=== PATIENT | female | born 1965 | race American Indian/Alaskan Native ===

== ENCOUNTER 2016-12-05 08:02 | Outpatient (CLI) | payer MEDICAID ==
--- NOTE | 2016-12-05 11:50 | Fluoroscopy Report ---
MODIFIED BARIUM SWALLOW INDICATION: Dysphagia. COMPARISON: None similar. FINDINGS: Fluoroscopy provided by radiologist for speech therapist to assess the swallowing mechanism. Food items of various consistencies given. No aspiration or penetration noted. Few radiopaque dental material. IMPRESSION: Successful modified barium swallow. Please refer to detailed report from speech pathologist. Thank you for the opportunity to participate in this patient's care.
== END 2016-12-05 08:03 | disposition home or self-care (01) ==
LOC: PT 08:02
PROVIDERS: ATTEND Otolaryngology
DX: R13.10 Dysphagia, unspecified (principal)
CPT/HCPCS: 74230

== ENCOUNTER → 2021-05-05 | Outpatient (CLI) | payer MEDICAID | END | disposition home or self-care (01) | LOC: SLR 11:00 | PROVIDERS: ATTEND Internal Medicine Critical Care Medicine | DX: G47.33 Obstructive sleep apnea (adult) (pediatric) (principal); R40.0 Somnolence; E66.9 Obesity, unspecified | CPT/HCPCS: G0399 ==

== ENCOUNTER 2022-03-19 20:26 | Emergency (ER) | payer MEDICAID ==
[2022-03-19] MEDS ORDERED: MORPHINE 4 MG/1 ML INJ IM ONE (23:43)
[2022-03-20] MEDS ORDERED: ASPIRIN 325 MG TAB PO ONE (00:02)
[2022-03-20] MEDS ORDERED: dexAMETHasone 20 MG/5 ML VIAL IV ONE (00:02)
[2022-03-20 00:35] LABS: Basophils # (Auto) 0.1 K/mm3 (0.0-0.1); Basophils % (Auto) 0.6 % (0.0-1.8); Eosinophils # (Auto) 0.2 K/mm3 (0.0-0.4); Eosinophils % (Auto) 2.5 % (0.0-4.3); Hematocrit 33.6 % (30.3-42.9); Hemoglobin 10.5 gm/dl (10.1-14.3); Lymphocytes # (Auto) 1.2 K/mm3 (1.2-5.4); Lymphocytes % (Auto) 12.7 % (13.4-35.0); Mean Corpuscular HGB Conc 31 % (30-34); Mean Corpuscular Volume 72 fl (79-97); Monocytes # (Auto) 0.4 K/mm3 (0.0-0.8); Monocytes % (Auto) 3.9 % (0.0-7.3); Platelet Count 261 K/mm3 (140-440); Red Blood Count 4.68 M/mm3 (3.65-5.03); Red Cell Distribution Width 18.1 % (13.2-15.2)
--- NOTE | 2022-03-20 00:36 | XRay Report ---
CHEST 1 VIEW 03/20/2022 12:28 AM INDICATION / CLINICAL INFORMATION: chest pain . COMPARISON: One view of the chest from 10/01/2016. FINDINGS: SUPPORT DEVICES: None. HEART / MEDIASTINUM: No significant abnormality. LUNGS / PLEURA: No significant pulmonary abnormality. No significant pleural effusion. No pneumothora x. ADDITIONAL FINDINGS: No significant additional findings. IMPRESSION: 1. No acute abnormality of the chest. Signer Name: Brien Johnston MD Signed: 03/20/2022 12:32 AM Workstation Name: [id number]
[2022-03-20 00:56] LABS: Alanine Aminotransferase 11 units/L (7-56); Albumin 4.2 g/dL (3.9-5); Blood Urea Nitrogen 10 mg/dL (7-17); Calcium 9.3 mg/dL (8.4-10.2); Hemolysis Index 0
[2022-03-20 01:00] LABS: BUN/Creatinine Ratio 14
--- NOTE | 2022-03-20 02:22 | Vascular Lab Report ---
DUPLEX DOPPLER LOWER EXTREMITY VEINS, BILATERAL INDICATION / CLINICAL INFORMATION: BILATERAL LE PAIN. TECHNIQUE: Duplex doppler imaging was performed through the veins of both lower extremities using philip ous compression and other maneuvers. COMPARISON: None available. FINDINGS: The study is limited by the patient's body habitus. RIGHT COMMON FEMORAL VEIN: Negative. RIGHT FEMORAL VEIN: Negative. RIGHT POPLITEAL VEIN: Negative. RIGHT CALF VEINS: Negative. LEFT COMMON FEMORAL VEIN: Negative. LEFT FEMORAL VEIN: There is nonspecific lack of compressibility along the mid and distal portions of the left femoral vein. Color flow is noted along those portions of the vein. The proximal femoral vei n is negative for DVT. LEFT POPLITEAL VEIN: Negative. LEFT CALF VEINS: Negative. ADDITIONAL FINDINGS: None. IMPRESSION: 1. Nonspecific lack of compressibility in the left femoral vein as above could indicate DVT. 2. No other sonographic evidence of DVT in either lower extremity. Signer Name: Brien Johnston MD Signed: 03/20/2022 2:18 AM Workstation Name: [id number]
--- NOTE | 2022-03-20 03:14 | Emergency Department Report ---
<EDIN MEYER - Last Filed: 03/20/22 06:36> ED Neck Pain/Injury HPI - General Chief Complaint: Neck Pain/Injury Stated Complaint: PAIN IN CHEST AND NECK Mode of arrival: Ambulatory Limitations: No Limitations - History of Present Illness Initial Comments: Patient is a 56-year-old -[place] female with a history of hypertension, [id number] diabetes, chronic osteoarthritis, chronic cervical disc disease, chronic lumbar disc disease, GERD and asthma who presents to the ED with complaint of acute exacerbation of chronic neck pain and low back pain for the last 1 week. Patient also complains of intermittent chest pain that radiates to the bilateral shoulders. Patient also complains of bilateral lower extremity pain with mild swelling. Patient states that she used to attend a pain clinic until November when her pain management physician and since then she has not been able to follow-up with any physician or any pain clinic. Patient states that she ran out of her pain medication that she had previously been prescribed which was Percocet 10 mg-325 and Roxicodone 30 mg tablets. Patient states that the pain is persistent and and that she is unable to sleep because of worsening pain. Patient denies dizziness, syncope, shortness of breath, traumatic injury, heavy lifting, diaphoresis, abdominal pain, nausea and vomiting or dizziness and syncope, numbness and tingling or weakness of upper or lower extremities bilaterally. MD Complaint: neck pain, upper back pain, other (chest pain) -: Sudden, week(s) (1) Place: home Radiation: right shoulder, upper back, chest (Chest pain) Severity: severe, constant Severity scale (0 -10): 8 Quality: sharp, aching Consistency: constant Improves With: none Worsens With: movement of neck Context: turning/bending Associated Symptoms: tingling, other (Bilateral lower extremity pain and swelling). denies: numbness, weakness, vertigo, difficulty walking, swollen glands, difficulty swallowing, nausea, vomiting Treatments Prior to Arrival: none - Related Data Previous Rx's Medication Instructions Recorded Last Taken Type Azithromycin [Zithromax Z-GAYLA] 250 mg PO DAILY #6 tab 06/08/16 Unknown Rx Fluticasone [Flonase] 1 spray NS QDAY #1 bottle 06/08/16 Unknown Rx Mag Hydrox/Aluminum Hyd/Simeth 10 ml PO Q6HR PRN #355 ml 10/01/16 Unknown Rx [Maalox Advanced Suspension] Dicyclomine [Bentyl] 10 mg PO QID PRN #20 capsule 10/07/16 Unknown Rx Ketorolac [Toradol] 10 mg PO Q6H PRN #20 tablet 10/07/16 Unknown Rx Ondansetron [Zofran Odt] 4 mg PO QID PRN #20 tab.rapdis 10/07/16 Unknown Rx Apixaban [Eliquis starter pack] 5 mg PO BID 30 Days #74 tab 03/20/22 Unknown Rx Allergies Allergy/AdvReac Type Severity Reaction Status Date / Time sulfamethoxazole Allergy Hives Verified 06/07/16 22:38 [From Bactrim] tramadol Allergy Itching Verified 01/13/14 19:44 trimethoprim [From Bactrim] Allergy Hives Verified 06/07/16 22:38 ED Review of Systems Constitutional: denies: chills, fever Eyes: denies: eye pain, eye discharge, vision change ENT: denies: ear pain, throat pain Respiratory: denies: cough, shortness of breath, wheezing Cardiovascular: chest pain (Intermittent chest pain). denies: palpitations Endocrine: no symptoms reported Gastrointestinal: denies: abdominal pain, nausea, vomiting, diarrhea Genitourinary: denies: urgency, dysuria, discharge Musculoskeletal: back pain (Upper back pain), arthralgia (Neck pain and bilateral shoulder pain), other (Bilateral lower extremities pain and swelling). denies: joint swelling Skin: denies: rash, lesions Neurological: denies: headache, weakness, paresthesias Psychiatric: denies: anxiety, depression Hematological/Lymphatic: denies: easy bleeding, easy bruising ED Past Medical Hx - Past Medical History Previous Medical History?: Yes Hx Hypertension: Yes Hx Diabetes: Yes Hx GERD: Yes Hx Arthritis: Yes Hx Asthma: Yes Additional medical history: pinched nerve in neck, DDD. bronchitis. herniated disc. Morbid Obesity. Sees filler block inserter remover for fast heart beat. - Surgical History Past Surgical History?: Yes Additional Surgical History: 2 , carpal tunnel surg to left hand - Social History Smoking Status: Never Smoker Substance Use Type: None - Medications Home Medications: Home Medications Medication Instructions Recorded Confirmed Last Taken Type Azithromycin [Zithromax Z-GAYLA] 250 mg PO DAILY #6 tab 06/08/16 Unknown Rx Fluticasone [Flonase] 1 spray NS QDAY #1 bottle 06/08/16 Unknown Rx Mag Hydrox/Aluminum Hyd/Simeth 10 ml PO Q6HR PRN #355 ml 10/01/16 Unknown Rx [Maalox Advanced Suspension] Dicyclomine [Bentyl] 10 mg PO QID PRN #20 capsule 10/07/16 Unknown Rx Ketorolac [Toradol] 10 mg PO Q6H PRN #20 tablet 10/07/16 Unknown Rx Ondansetron [Zofran Odt] 4 mg PO QID PRN #20 tab.rapdis 10/07/16 Unknown Rx Apixaban [Eliquis starter pack] 5 mg PO BID 30 Days #74 tab 03/20/22 Unknown Rx ED Physical Exam - General Limitations: No Limitations General appearance: alert, in no apparent distress - Head Head exam: Present: atraumatic, normocephalic, normal inspection - Eye Eye exam: Present: normal appearance, PERRL, EOMI Pupils: Present: normal accommodation - ENT ENT exam: Present: normal exam, normal orophraynx, mucous membranes moist, TM's normal bilaterally, normal external ear exam - Neck Neck exam: Present: normal inspection, tenderness (Palpable cervical paraspinal musculoskeletal tenderness with limited range of motion due to pain), full ROM (Limited range of motion due to pain). Absent: lymphadenopathy - Respiratory Respiratory exam: Present: normal lung sounds bilaterally. Absent: respiratory distress, wheezes, rales, rhonchi, chest wall tenderness, accessory muscle use, decreased breath sounds, prolonged expiratory - Cardiovascular Cardiovascular Exam: Present: regular rate, normal rhythm, normal heart sounds. Absent: systolic murmur, diastolic murmur, rubs, gallop - GI/Abdominal GI/Abdominal exam: Present: soft, normal bowel sounds. Absent: tenderness, guarding, rebound, hyperactive bowel sounds, hypoactive bowel sounds, mass, bruit - Extremities Exam Extremities exam: Present: normal inspection, full ROM, tenderness (Palpable bilateral lower extremity tenderness with mild swelling), normal capillary refill - Back Exam Back exam: Present: normal inspection, full ROM, tenderness (Palpable lumbosacral paraspinal musculoskeletal tenderness), muscle spasm, paraspinal tenderness. Absent: CVA tenderness (R), vertebral tenderness - Neurological Exam Neurological exam: Present: alert, oriented X3, CN II-XII intact, normal gait, reflexes normal - Psychiatric Psychiatric exam: Present: normal affect, normal mood - Skin Skin exam: Present: warm, dry, intact, normal color. Absent: rash ED Medical Decision Making - Lab Data Result diagrams: 03/20/22 00:08 03/20/22 00:08 - Radiology Data Radiology results: report reviewed, image reviewed [facility] [address] [place] [address] Vascular Lab Report Signed Patient: CLARISA POZO MR#: [id number] : 1965 Acct:[id number] Age/Sex: 56 / F ADM Date: 03/19/22 Loc: ED Attending Dr: Ordering Physician: BEN BECKMAN Date of Service: 03/19/22 Procedure(s): VL venous duplex LE BILAT Accession Number(s): [id number] cc: BEN BECKMAN DUPLEX DOPPLER LOWER EXTREMITY VEINS, BILATERAL INDICATION / CLINICAL INFORMATION: BILATERAL LE PAIN. TECHNIQUE: Duplex doppler imaging was performed through the veins of both lower extremities using venous compression and other maneuvers. COMPARISON: None available. FINDINGS: The study is limited by the patient's body habitus. RIGHT COMMON FEMORAL VEIN: Negative. RIGHT FEMORAL VEIN: Negative. RIGHT POPLITEAL VEIN: Negative. RIGHT CALF VEINS: Negative. LEFT COMMON FEMORAL VEIN: Negative. LEFT FEMORAL VEIN: There is nonspecific lack of compressibility along the mid and distal portions of the left femoral vein. Color flow is noted along those portions of the vein. The proximal femoral vein is negative for DVT. LEFT POPLITEAL VEIN: Negative. LEFT CALF VEINS: Negative. ADDITIONAL FINDINGS: None. IMPRESSION: 1. Nonspecific lack of compressibility in the left femoral vein as above could indicate DVT. 2. No other sonographic evidence of DVT in either lower extremity. Signer Name: Brien Johnston MD Signed: 03/20/2022 2:18 AM Workstation Name: [id number] Transcribed By: BIBI Dictated By: Brien Johnston MD Electronically Authenticated By: Brien Johnston MD Signed Date/Time: 03/20/22217 DD/ 3 TD/TT: ------ [facility] [address] [place] [address] XRay Report Signed Patient: CLARISA POZO MR#: [id number] : 1965 Acct:[id number] Age/Sex: 56 / F ADM Date: 03/19/22 Loc: ED Attending Dr: Ordering Physician: BEN BECKMAN Date of Service: 03/19/22 Procedure(s): XR chest 1V ap Accession Number(s): [id number] cc: BEN BECKMAN Fluoro Time In Minutes: CHEST 1 VIEW 03/20/2022 12:28 AM INDICATION / CLINICAL INFORMATION: chest pain . COMPARISON: One view of the chest from 10/01/2016. FINDINGS: SUPPORT DEVICES: None. HEART / MEDIASTINUM: No significant abnormality. LUNGS / PLEURA: No significant pulmonary abnormality. No significant pleural effusion. No pneumothorax. ADDITIONAL FINDINGS: No significant additional findings. IMPRESSION: 1. No acute abnormality of the chest. Signer Name: Brien Johnston MD Signed: 03/20/2022 12:32 AM Workstation Name: [id number] Transcribed By: BIBI Dictated By: Brien Johnston MD Electronically Authenticated By: Brien Johnston MD Signed Date/Time: 03/20/2231 DD/ TD/TT: - Medical Decision Making This is a 56-year-old -[place] female with a history of hypertension, vdv-nclbszt-ndaeoqodt diabetes, chronic osteoarthritis, chronic cervical disc disease, chronic lumbar disc disease, GERD and asthma who presents to the ED with complaint of acute exacerbation of chronic neck pain and low back pain for the last 1 week. Patient also complains of intermittent chest pain that radiates to the bilateral shoulders. Patient states that she used to attend a pain clinic until November when her pain management physician and since then she has not been able to follow-up with any physician or any pain clinic. Patient states that she ran out of her pain medication that she had previously been prescribed which was Percocet 10 mg-325 and Roxicodone 30 mg tablets. Patient states that the pain is persistent and and that she is unable to sleep because of worsening pain. In the ED, patient is alert and oriented x3 and is not in any distress. Chest x-ray showed no acute cardiopulmonary abnormalities or pneumonitis. Patient was treated for pain in the ED and lab test results were reviewed and are all nonactionable including initial and 3-hour troponin levels. Bilateral lower extremity Doppler ultrasound showed a nonspecific lack of compressibility in the left femoral vein as above could indicate DVT. Rest of the Doppler ultrasound showed no other evidence of DVT. Patient was treated in the ED with Lovenox 120 mg subcutaneous injection x1. CTA chest is pending. Patient's pain is well controlled at this time. Patient care was transferred to Pillo Martin Corby PAC-at shift change at 0700 hrs. She shall review the imaging report and disposition the patient accordingly. - Differential Diagnosis PE; chronic neck pain; pneumonia; DVT; ACS; dissection; muscle strain ED Disposition Clinical Impression: Nonspecific chest pain, Cervical neck pain with evidence of disc disease, Cervical radiculopathy due to degenerative joint disease of spine Deep vein thrombosis of left lower extremity Qualifiers: Affected thrombotic vein of extremity: femoral Chronicity: acute Qualified Code(s): I82.412 - Acute embolism and thrombosis of left femoral vein Disposition: HOME / SELF CARE / HOMELESS Is pt being admited?: No Does the pt Need Aspirin: No Condition: Stable Instructions: Nonspecific Chest Pain, Adult Additional Instructions: Chest CT angio is negative for any pulmonary embolisms. Prescriptions: Apixaban [Eliquis starter pack] 5 mg PO BID 30 Days #74 tab Referrals: PB FONSECA MD [Primary Care Provider] - 3-5 Days Time of Disposition: 03:35 Print Language: AMHARIC <SAL SOSA - Last Filed: 03/20/22 12:30> ED Review of Systems ROS: Stated complaint: PAIN IN CHEST AND NECK Other details as noted in HPI ED Physical Exam - General General appearance: alert, in no apparent distress - Head Head exam: Present: atraumatic, normocephalic, normal inspection - Eye Eye exam: Present: normal appearance, PERRL, EOMI Pupils: Present: normal accommodation - ENT ENT exam: Present: normal exam, normal orophraynx, mucous membranes moist, normal external ear exam - Neck Neck exam: Present: tenderness, full ROM - Cardiovascular Cardiovascular Exam: Present: regular rate - GI/Abdominal GI/Abdominal exam: Present: soft - Extremities Exam Extremities exam: Present: pedal edema ED Course Vital Signs 03/19/22 03/19/22 03/19/22 20:46 22:56 23:00 Temperature 98.5 F Pulse Rate 99 H Respiratory 18 Rate Blood Pressure 215/92 179/80 O2 Sat by Pulse 98 98 99 Oximetry 03/19/22 03/19/22 03/19/22 23:16 23:30 23:46 Temperature Pulse Rate Respiratory Rate Blood Pressure 179/80 152/69 152/69 O2 Sat by Pulse 98 98 98 Oximetry 03/20/22 03/20/22 03/20/22 00:00 00:16 00:32 Temperature Pulse Rate Respiratory Rate Blood Pressure 176/71 176/71 176/71 O2 Sat by Pulse 100 100 100 Oximetry 03/20/22 03/20/22 03/20/22 02:30 02:46 03:00 Temperature Pulse Rate Respiratory Rate Blood Pressure 176/71 176/71 176/71 O2 Sat by Pulse 99 97 97 Oximetry 03/20/22 03/20/22 03/20/22 03:16 03:30 03:46 Temperature Pulse Rate Respiratory Rate Blood Pressure 176/71 176/71 155/83 O2 Sat by Pulse 97 97 97 Oximetry 03/20/22 03/20/22 03/20/22 04:00 04:16 04:30 Temperature Pulse Rate Respiratory Rate Blood Pressure 156/67 156/67 176/71 O2 Sat by Pulse 96 97 96 Oximetry 03/20/22 03/20/22 03/20/22 04:46 06:28 06:30 Temperature Pulse Rate Respiratory Rate Blood Pressure 176/71 149/69 O2 Sat by Pulse 98 98 94 Oximetry 03/20/22 06:45 Temperature Pulse Rate Respiratory Rate Blood Pressure 149/69 O2 Sat by Pulse 96 Oximetry - Reevaluation(s) Reevaluation #1: 03/20/22 10:36 Patient request for Benadryl for her nerves prior to her CT scan. ED Medical Decision Making - Lab Data Result diagrams: 03/20/22 00:08 03/20/22 00:08 - Radiology Data [facility] [address] [place] [address] Cat Scan Report Signed Patient: CLARISA POZO MR#: [id number] : 1965 Acct:[id number] Age/Sex: 56 / F ADM Date: 03/19/22 Loc: ED Attending Dr: Ordering Physician: BEN CAMPUZANO Date of Service: 03/20/22 Procedure(s): CT angio chest Accession Number(s): [id number] cc: BEN CAMPUZANO CTA CHEST WITH CONTRAST INDICATION : chest pain questionable DVT OMNI 350 100 ML. TECHNIQUE: Axial imaging performed through the chest, with contrast bolus timing set to maximize opacification of the pulmonary arteries. Sagittal and coronal reformatted images. 3-plane MIP refo rmatted images were obtained. All CT scans at this location are performed using CT dose reduction for ALARA by means of automated exposure control. Omnipaque 350 100 mL of intravenous contrast administered. COMPARISON: None. Correlation is made with venous duplex ultrasound performed yesterday. FINDINGS: Bolus: Contrast bolus timing is adequate. PTE: No filling defect is present to suggest PTE. Mediastinum: Heart size is borderline. No pericardial abnormality. No significant coronary artery calcifications. The thoracic aorta and great vessels are unremarkable. No pathologic mediastinal adenopathy. Lungs: The lungs are clear with no evidence for infiltrate, interstitial disease, pleural effusion or pneumothorax. Bones: Degenerative changes in the spine with nothing acute. Upper abdomen: Limited imaging of the upper abdomen shows nothing acute. IMPRESSION: Negative for PTE. Clear lungs. Borderline to mild cardiomegaly. Signer Name: Asher Burns Jr, MD Signed: 03/20/2022 11:23 AM Workstation Name: [id number] Transcribed By: TTR Dictated By: ASHER BURNS JR, MD Electronically Authenticated By: ASHER BURNS JR, MD Signed Date/Time: 03/20/22 1123 DD/ 1120 TD/TT: - Medical Decision Making CTA chest was completed and negative. Patient be placed on Eliquis for concerns of lower leg DVT. Patient will be referred to vascular and to follow-up with her primary care provider as well as a pain management provider. Critical care attestation.: If time is entered above; I have spent that time in minutes in the direct care of this critically ill patient, excluding procedure time. ED Disposition Is pt being admited?: No Does the pt Need Aspirin: No Time of Disposition: 11:45
[2022-03-20] MEDS ORDERED: ENOXAPARIN 120 MG/0.8 ML INJ SUB-Q ONE (03:32)
[2022-03-20] MEDS ORDERED: methylPREDNISolone Sod Succinate 125 MG/2 ML INJ IV ONE (07:23)
[2022-03-20] MEDS ORDERED: diphenhydrAMINE 50 MG/ML VIAL IV ONE ×2 (07:23→10:35)
--- NOTE | 2022-03-20 11:28 | Cat Scan Report ---
CTA CHEST WITH CONTRAST INDICATION : chest pain questionable DVT OMNI 350 100 ML. TECHNIQUE: Axial imaging performed through the chest, with contrast bolus timing set to maximize opa cification of the pulmonary arteries. Sagittal and coronal reformatted images. 3-plane MIP reformatte d images were obtained. All CT scans at this location are performed using CT dose reduction for ALAR A by means of automated exposure control. Omnipaque 350 100 mL of intravenous contrast administered. COMPARISON: None. Correlation is made with venous duplex ultrasound performed yesterday. FINDINGS: Bolus: Contrast bolus timing is adequate. PTE: No filling defect is present to suggest PTE. Mediastinum: Heart size is borderline. No pericardial abnormality. No significant coronary artery ca lcifications. The thoracic aorta and great vessels are unremarkable. No pathologic mediastinal adeno indra. Lungs: The lungs are clear with no evidence for infiltrate, interstitial disease, pleural effusion o r pneumothorax. Bones: Degenerative changes in the spine with nothing acute. Upper abdomen: Limited imaging of the upper abdomen shows nothing acute. IMPRESSION: Negative for PTE. Clear lungs. Borderline to mild cardiomegaly. Signer Name: Asher Burns Jr, MD Signed: 03/20/2022 11:23 AM Workstation Name: [id number]
[2022-03-20 12:51] VITALS: BP 169/93
--- NOTE | 2022-03-22 17:43 | Electrocardiograph Report ---
[facility] Test Date: 2022-03-20 Test Time: 02:27:55 Pat Name: CLARISA POZO Department: Room: Gender: F Senior Fund Accountant: SHONA : 1965 Requested By: EDIN MEYER Order Number: [id number] Reading MD: Giovanni Persaud Measurements Intervals [place] Rate: 80 P: 50 HI: 170 QRS: 2 QRSD: 92 T: 20 QT: 383 QTc: 442 Interpretive Statements Sinus rhythm No previous ECG available for comparison Electronically Signed On 03-22-2022 17:42:36 EDT by Giovanni Persaud
== END 2022-03-20 12:49 | disposition home or self-care (01) ==
LOC: ED 20:26
DX: R07.9 Chest pain, unspecified (principal); M50.13 Cervical disc disorder with radiculopathy, cervicothoracic region; I82.402 Acute embolism and thrombosis of unspecified deep veins of left lower extremity; Z88.5 Allergy status to narcotic agent; Z88.2 Allergy status to sulfonamides
CPT/HCPCS: 36415; 71045; 71275; 80053; 84484; 85025; 93005; 93970; 96372; 96374; 96375; 96376; 99284; J1100; J1200; J1650; J2270; J2930; Q9967